=== PATIENT | male | born 1970 | race Caucasian/White ===

== ENCOUNTER 2016-12-10 22:40 | Emergency (ER) | payer OTHER ==
[2016-12-10 23:02] LABS: BASOPHIL 0.6 % (0-2); EOSINOPHIL 1.7 % (0-5); HCT 44.4 % (42.0-52.0); HGB 15.7 g/dl (13.2-18.0); MCH 30.2 pg (25.0-31.0); MCHC 35.4 g/dL (32.0-36.0); MCV 85.4 fL (78.0-100.0); MONOCYTE 8.9 % (0-12); MPV 9.7 fL (6.0-9.5); NEUTROPHIL 57.8 % (41-80); PLT 260 K/uL (150-400); RDW 12.8 % (11.5-14.0); WBC 12.7 K/uL (4.0-10.5)
[2016-12-10 23:09] LABS: PROTHROMBIN TIME 12.8 SECONDS (11.7-14.0); PTT 24.6 SECONDS (23.2-31.4)
[2016-12-10 23:11] LABS: D-DIMER < 0.27 ug/mLFEU (0.00-0.41)
[2016-12-10 23:19] LABS: ALBUMIN 4.9 g/dL (3.5-5.0); BILIRUBIN - TOTAL 0.3 mg/dL (0.1-1.0); CKMB 3.76 ng/mL (0.97-4.94); CREATININE 1.1 mg/dL (0.7-1.2); GLOBULIN (CALCULATION) 2.5 g/dL (2.2-4.2); MAGNESIUM 2.04 mg/dL (1.40-2.10); MYOGLOBIN 71 ng/mL (26-65); POTASSIUM 3.4 mmol/L (3.5-5.1); PRO-BNP 23 pg/mL (0-125); TOTAL PROTEIN 7.4 g/dL (6.4-8.3); TROPONIN T < 0.010 ng/mL
== END 2016-12-11 03:16 | disposition home or self-care (01) ==
LOC: FER 22:40
PROVIDERS: Emergency Medicine Emergency Medical Services
DX: R07.89 Other chest pain (principal); R42 Dizziness and giddiness; I10 Essential (primary) hypertension; J45.909 Unspecified asthma, uncomplicated; Z79.51 Long term (current) use of inhaled steroids; Z79.899 Other long term (current) drug therapy; Z88.0 Allergy status to penicillin
CPT/HCPCS: 36415; 71010; 80053; 82550; 82553; 83735; 83874; 83880; 84484; 85025; 85379; 85610; 85730; 93005